=== PATIENT | male | born 1990 | race American Indian/Alaskan Native ===

== ENCOUNTER 2025-03-09 14:37 | Emergency (ER) | payer OTHER, SELFPAY ==
[2025-03-09] VITALS (10 sets, daily range): BP systolic 140–152; BP diastolic 70–80; PULSE 75–101; RESP 16–21; TEMP 36.2–36.9; O2SAT 93–98; BMI 37.3
--- NOTE | 2025-03-09 14:52 | ED.BACK ---
HPI - Back Pain/Injury <Faye Juarez PA-C - Last Filed: 03/09/25 18:45> General Chief Complaint: Back Pain/Injury Stated Complaint: Work Injury t-6, Back Pain Time Seen by Provider: 03/09/25 14:52 Source: patient History of Present Illness HPI Narrative: 34-year-old male presents today with low back pain. He was initially seen in the walk-in clinic but redirected to the emergency department due to his 06/15 pain. 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 He finished his shift ?muscle in through the following day he felt a little bit better and returned to work but does note spasms or nerve pinches that strike like electric shocks. He states the left side is worse than the right and it radiates to the buttock and mid thigh. He reports no weakness, no issues with bowel or bladder no issues starting or stopping his stream but what brought him in today is now he is experiencing left testicular pain and pain with defecation. He reports no stool retention or constipation and no incontinence of stool or urine. He has been taking ibuprofen 400 mg [id number] every 4 hours, no ice he did try heat with no help. He can not get comfortable, he reports worsening pain with any movement such as standing, sitting, bending forward, walking. 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 He denies any scrotal swelling. Has no surgical history, no prior back injuries that he is aware of. He resides in [place]. All other systems are reviewed and are negative. Related Data Previous Rx's Medication Instructions Recorded cyclobenzaprine 10 mg tablet 10 mg PO TID #10 tabs 03/09/25 hydrocodone 5 mg-acetaminophen 325 1 tab PO Q6H PRN pain #10 tabs 03/09/25 mg tablet prednisone 20 mg tablet 40 mg (2 x 20 mg) PO DAILY #8 tabs 03/09/25 Allergies Allergy/AdvReac Type Severity Reaction Status Date / Time No Known Drug Allergies Allergy Verified 03/09/25 14:42 Review of Systems <Faye Juarez PA-C - Last Filed: 03/09/25 18:45> Review of Systems Narrative: All other systems reviewed and are negative. Patient History <Faye Juarez PA-C - Last Filed: 03/09/25 18:45> Social History Smoking Status: Current every day smoker Smoking Status: Current every day smoker tobacco type: cigarettes Exam <Faye Juarez PA-C - Last Filed: 03/09/25 18:45> Initial Vital Signs Initial Vital Signs: Vital Signs Temperature 97.1 F L 03/09/25 14:42 Pulse Rate 101 H 03/09/25 14:42 Respiratory Rate 18 03/09/25 14:42 Blood Pressure 152/80 H 03/09/25 14:42 Pulse Oximetry 97 03/09/25 14:42 Oxygen Delivery Method Room Air 03/09/25 14:42 Vital signs reviewed and are normal. Const General: cooperative, well developed, well groomed and No acute distress Other: Brought in by wheelchair, pleasantly conversing. No obvious distress. He is here with his brother and father. [facility] Head: normal to inspection and normocephalic Eyes General: Yes appearance normal, both eyes and all related structures Neck Neck: normal visual inspection, full ROM, trachea midline, supple and No lymphadenopathy Resp Auscultation: clear to auscultation bilaterally, no rales, no rhonchi and no wheezes Cardio Rate: regular rate Rhythm: regular rhythm GI Inspection: normal to inspection, no edema, non-distended and no visible herniation Percussion: normal to percussion Auscultation: normal bowel sounds Rectal Exam: visual inspection normal, normal sphincter tone, prostate normal and tenderness General: bladder normal to inspection, bladder normal to palpation and No CVA tenderness External: normal external exam, no hernia and no inguinal lymphadenopathy Penis: normal penis and no swelling Meatus: meatus normal Scrotum: scrotum normal, no ecchymosis, not edematous, not erythematous, no masses and no scrotal swelling Testes: normal, testicular lie normal and epididymides normal Other: Tenderness at the external inguinal ring bilaterally but no appreciable hernia. Back/Spine/Pelvis Back: back tenderness, No CVA tenderness, No ecchymosis, No erythema, No mass, No sacral edema and No warmth Cervical Spine: normal cervical lordosis and cervical ROM normal Thoracic/Lumbar Spine: No surgical scar(s) present, pain with thoraco-lumbar ROM, paraspinal tenderness, thoraco-lumbar spasm, lumbar spinal tenderness and straight leg raise positive (Pain is reproduced bilaterally with leg his raised 10-15 degrees below full) Sacroiliac Joints: nontender Sacrum: no ecchymosis, no erythema, no swelling and no tenderness Coccyx: no tenderness Other: Unable to perform full extension in the upright position, lateral bending and rotation cause him pain. He has pain maximal intensity in the interspaces of L4-L5 S1. Paraspinous tissues or also tender left greater than right, no sciatic notch tenderness elicited. No buttock tenderness, gluteal tone is normal. Hamstrings are slightly tight left greater than right, no ITB band tenderness. Unable to perform hip ROM in the standing position due to his low back pain he has full weightbear, no foot drop. Neuro DTR's: Rt Patellar: 2+, Lt Patellar: 2+, Rt Ankle: 2+ and Lt Ankle: 2+ Plantar Reflexes: Downgoing: bilateral Other: Sensory is grossly intact, distal neurovascular is intact, normal DP and PT pulses. No edema. Lower extremities are symmetric. Strength is intact with lower extremities abduction, adduction, knee flexion, extension, strength intact against resistance to bilateral feet, lower extremities. Extrem Other: No focal deficits of his lower or upper extremities. <Denise Erickson DO - Last Filed: 03/10/25 18:13> Initial Vital Signs Initial Vital Signs: Vital Signs Temperature 97.1 F L 03/09/25 14:42 Pulse Rate 101 H 03/09/25 14:42 Respiratory Rate 18 03/09/25 14:42 Blood Pressure 152/80 H 03/09/25 14:42 Pulse Oximetry 97 03/09/25 14:42 Oxygen Delivery Method Room Air 03/09/25 14:42 Course <Faye Juarez PA-C - Last Filed: 03/09/25 18:45> Orders Ordered: Discontinued Medications Hydrocodone Bitart/Acetaminophen (Hydrocodone/Acet 5/325 Prepack) 1 bottle MISC DIRECTED ONE Stop: 03/09/25 17:57 Last Admin: 03/09/25 18:29 Dose: 1 bottle Documented By: SHAGGY Cyclobenzaprine HCl (Cyclobenzaprine 10 Mg Prepack) 1 bottle MISC DIRECTED ONE Stop: 03/09/25 17:57 Last Admin: 03/09/25 18:29 Dose: 1 bottle Documented By: SHAGGY Diazepam (Diazepam 10 Mg/2 Ml Syringe) 2 mg IV NOW ONE Stop: 03/09/25 17:13 Last Admin: 03/09/25 17:19 Dose: 2 mg Documented By: Hydromorphone HCl (Hydromorphone 1 Mg Inj) 1 mg IV NOW ONE Stop: 03/09/25 15:32 Last Admin: 03/09/25 15:42 Dose: 1 mg Documented By: SB Hydromorphone HCl (Hydromorphone 1 Mg Inj) 1 mg IV NOW ONE Stop: 03/09/25 16:43 Last Admin: 03/09/25 16:52 Dose: 1 mg Documented By: Ondansetron HCl (Ondansetron 4 Mg/2 Ml Inj) 4 mg IV NOW ONE Stop: 03/09/25 15:46 Last Admin: 03/09/25 15:53 Dose: 4 mg Documented By: SHAGGY Prednisone (Prednisone 20 Mg Tablet) 40 mg PO NOW ONE Stop: 03/09/25 16:24 Last Admin: 03/09/25 16:30 Dose: 40 mg Documented By: SHAGGY Reevaluation(s) Reevaluation #1: Initially some improvement with 1st dose of Dilaudid, he was able to ambulate to the toilet and provide a urine sample which was normal. Subsequent spasm ensued at the left gluteus region, sciatic notch (reexamined), no swelling, focal tenderness is noted here, additional Dilaudid was given. Patient continues to have spasms and a trial of Valium IV will be given along with plain film radiographs. He has been given to bottles of water as his specific gravity was 1.030 otherwise it was a negative urinalysis. Reevaluation #2: More improvement following the Valium, he is again in full extension upright and able to ambulate, still has occasional spasms in the left buttock. No new findings on examination or new symptoms at this point. At no time did he experience any respiratory depression. Vital signs remained normal throughout. Vital Signs Vital signs: Vital Signs - 8 hr 03/09/25 14:42 03/09/25 16:56 Temperature 97.1 F L Pulse Rate 101 H 88 Respiratory Rate 18 18 Blood Pressure 152/80 H 148/75 H Pulse Oximetry 97 97 Oxygen Delivery Method Room Air Room Air <Denise Erickson DO - Last Filed: 03/10/25 18:13> Orders Ordered: Discontinued Medications Hydrocodone Bitart/Acetaminophen (Hydrocodone/Acet 5/325 Prepack) 1 bottle MISC DIRECTED ONE Stop: 03/09/25 17:57 Last Admin: 03/09/25 18:29 Dose: 1 bottle Documented By: SB Cyclobenzaprine HCl (Cyclobenzaprine 10 Mg Prepack) 1 bottle MISC DIRECTED ONE Stop: 03/09/25 17:57 Last Admin: 03/09/25 18:29 Dose: 1 bottle Documented By: SB Diazepam (Diazepam 10 Mg/2 Ml Syringe) 2 mg IV NOW ONE Stop: 03/09/25 17:13 Last Admin: 03/09/25 17:19 Dose: 2 mg Documented By: Hydromorphone HCl (Hydromorphone 1 Mg Inj) 1 mg IV NOW ONE Stop: 03/09/25 15:32 Last Admin: 03/09/25 15:42 Dose: 1 mg Documented By: SB Hydromorphone HCl (Hydromorphone 1 Mg Inj) 1 mg IV NOW ONE Stop: 03/09/25 16:43 Last Admin: 03/09/25 16:52 Dose: 1 mg Documented By: Ondansetron HCl (Ondansetron 4 Mg/2 Ml Inj) 4 mg IV NOW ONE Stop: 03/09/25 15:46 Last Admin: 03/09/25 15:53 Dose: 4 mg Documented By: SB Prednisone (Prednisone 20 Mg Tablet) 40 mg PO NOW ONE Stop: 03/09/25 16:24 Last Admin: 03/09/25 16:30 Dose: 40 mg Documented By: SB Vital Signs Vital signs: Vital Signs - 8 hr 03/09/25 14:42 03/09/25 16:56 Temperature 97.1 F L Pulse Rate 101 H 88 Respiratory Rate 18 18 Blood Pressure 152/80 H 148/75 H Pulse Oximetry 97 97 Oxygen Delivery Method Room Air Room Air MDM - Back Pain/Injury <Faye Juarez PA-C - Last Filed: 03/09/25 18:45> Lab Data Lab results narrative: Urinalysis normal except for specific gravity 1.030. Labs: Urine Dip Bedside Urine Glucose 250 mg/dl Bedside Urine Bilirubin - Negative Bedside Urine Ketone - Negative Urine Specific [place] 1.030 Bedside Urine Occult Blood - Negative Bedside Urine pH 5.5 Bedside Urine Protein - Negative Bedside Urine Urobilinogen - Negative Bedside Urine Nitrite - Negative Bedside Urine Leukocytes - Negative Esterase Imaging Data X-ray lumbar spine: My Impression: Deferred to radiologist's interpretation below. Radiologist's Impression: PROCEDURE: XR LUMBAR SPINE 2-3V INDICATIONS: acute low back pain with radiculopathy. No fall or trauma TECHNIQUE: 3 views of the lumbar spine were acquired. COMPARISON: None. FINDINGS: Bones: 5 [id number] vertebrae are present. There is normal bony alignment. No vertebral body compression fractures. No suspicious bony lesions. Soft tissues: Overlying bowel gas pattern is normal. No suspicious soft tissue calcifications. IMPRESSION: No acute bony abnormality. Dictated by: Gregory Garcia M.D. on 03/09/2025 at 17:14 Approved by: Gregory Garcia M.D. on 03/09/2025 at 17:14 [facility] Narrative Medical decision making narrative: Patient was treated with intravenous pain management in the form of Dilaudid, he did get some mild relief, and was able to ambulate without assistance to the toilet and provide a urine sample. No focal neurologic deficits on examination, normal rectal tone and reflexes, no footdrop, he does have midline and paraspinous tissue tenderness of the lumbosacral spine however. He experienced some left-sided gluteal sciatic spasms, repeat Dilaudid was given no significant relief with this new symptom and a trial of Valium IV was given. This absolutely helps him, plain film radiographs were performed which showed no acute findings. Concern for disc bulge, herniation, rupture versus acute paraspinous or ligamentous sprain or strain of the lumbosacral region and muscle spasm. He is afebrile, no IV drug use, no signs of any infection or abscess, no clinical findings to suggest acute cauda equina, no evidence of inguinal hernia. Discussed this case with Dr. Erickson, the ER attending. He received his 1st dose of prednisone 40 mg in the ED as it was after hours, I have prescribed him for additional days in the form of a 40 mg daily burst, and addition prescriptions for cyclobenzaprine and Vicodin. He will be discharged with a prepack, we discussed constipation and narcotic usage and to make sure he hydrates or uses a stool softener as needed. Red flag warning signs were reviewed in great detail if he has any worsening signs tonight no significant pain relief, any new worrisome symptoms, do not hesitate to return to the emergency department. Discharged in improved and stable condition with his brother and father who will drive him home. <Denise Erickson, DO - Last Filed: 03/10/25 18:13> Lab Data Labs: Urine Dip Bedside Urine Glucose 250 mg/dl Bedside Urine Bilirubin - Negative Bedside Urine Ketone - Negative Urine Specific [place] 1.030 Bedside Urine Occult Blood - Negative Bedside Urine pH 5.5 Bedside Urine Protein - Negative Bedside Urine Urobilinogen - Negative Bedside Urine Nitrite - Negative Bedside Urine Leukocytes - Negative Esterase Discharge Plan Departure Patient Disposition: Home Clinical Impression: Acute back pain with radiculopathy Instructions: DI for Low Back Pain Activity Restrictions/Additional Instructions: This is an L&I claim, so when you go to [facility] to car pick up driver your prescriptions please show them your paperwork and tell them this, you should follow up with occupational medicine you may wish to call your employer to find out if they have a list of preferred providers, [facility] occupational medicine is located in [place], Dr. Frankel is available their phone number is [phone] again identify herself as an L&I back pain. There are other occupational medicine doctors in the area and you may use Google maps to find someone close to your location. The phone number listed on your paperwork can also help you by calling the injured worker hotline at [phone]. You were treated with intravenous Dilaudid which is a very strong narcotic, I have switched due to pill form also known as Vicodin this does contain acetaminophen so do not take any additional Tylenol. I have also prescribed you a steroid you had your 1st dose of prednisone today you will car pick up driver your remaining prescription and start that tomorrow. Take this with food, it can cause a little increased energy but it was a very strong anti-inflammatory. I have also prescribed a muscle relaxant called cyclobenzaprine also known as Flexeril this can be used at bedtime or up to 3 times daily, it can cause sedation so be cautious do not drive, do not use alcohol and use caution with your additional Vicodin. You were treated with Valium IV here, but I do not feel comfortable giving you additional due to the sedation risk. Narcotics can cause constipation so make sure you hydrate, consider prune juice or a stool softener if needed. These are available [id number]. I highly recommend ice to your lower back 15 minutes every several hours, use pillow support when sleeping, avoid prolonged sitting, I have given you a note taking her off work until your occupational medicine appointment. This is pending. If you have any issues overnight, you worsen, develop any new worrisome symptoms, have any issues with bowel or bladder such as retention or incontinence, any weakness in your legs, do not hesitate to return to the emergency department or call 911. I would refrain from any additional ibuprofen as it did not provide you any relief and you were taking 400 mg every 4 hours. This is too much too soon, ibuprofen is typically every 8 hours with food maximum of 800 mg. But again you did not get significant relief so I think we will try these newer medications. I have taken you off work for 3 days, pending your occupational medicine follow-up. Restrictions and light duty (if available) thereafter. Avoid bending, twisting from the waist, lifting anything greater than 10 lb, avoid prolonged sitting, standing, take mini work breaks. Do not operate heavy equipment or machinery with the prescription medications that were prescribed. No alcohol with these medications. Prescriptions: New prednisone 20 mg tablet 40 mg PO DAILY Qty: 8 0RF hydrocodone-acetaminophen 5-325 mg tablet 1 tab PO Q6H PRN (Reason: pain) Qty: 10 0RF cyclobenzaprine 10 mg tablet 10 mg PO TID Qty: 10 0RF Referrals: Miscellaneous,Doctor, MD [Primary Care Provider] - Stand Alone Forms: Patient Portal/API/Survey, Work Release Note ED Sign-out <Denise Erickson DO - Last Filed: 03/10/25 18:13> Cosign ED Attending [place] Attestation: I was available for consultation.
[2025-03-09] MEDS: HYDROMORPHONE 1 MG INJ IV ×2 (15:42→16:52)
[2025-03-09] MEDS: ONDANSETRON 4 MG/2 ML INJ IV (15:53)
[2025-03-09] MEDS: predniSONE 20 MG TABLET 40 MG PO (16:30)
--- NOTE | 2025-03-09 17:13 | DI.RAD.S_ITS ---
PROCEDURE: XR LUMBAR SPINE 2-3V INDICATIONS: acute low back pain with radiculopathy. No fall or trauma TECHNIQUE: 3 views of the lumbar spine were acquired. COMPARISON: None. FINDINGS: Bones: 5 [id number] vertebrae are present. There is normal bony alignment. No vertebral body compression fractures. No suspicious bony lesions. Soft tissues: Overlying bowel gas pattern is normal. No suspicious soft tissue calcifications. IMPRESSION: No acute bony abnormality. Dictated by: Gregory Garcia M.D. on 03/09/2025 at 17:14 Approved by: Gregory Garcia M.D. on 03/09/2025 at 17:14
[2025-03-09] MEDS: diazePAM 10 MG/2 ML SYRINGE 2 MG IV (17:19)
--- NOTE | 2025-03-09 17:26 | PC.NURSE ---
Pt able to ambulate to the bathroom for urine sample. Although, walking with slow steady gait. Pt able to stretch arms up and above and reach over to wall for support. After walking to the bathroom and back to bed, pt c/o left lower back spasms. PA made aware, medicated per JAN.
[2025-03-09] MEDS: HYDROCODONE/ACET 5/325 PREPACK 1 BOTTLE MISC (18:29)
[2025-03-09] MEDS: CYCLOBENZAPRINE 10 MG PREPACK 1 BOTTLE MISC (18:29)
== END 2025-03-09 18:35 | disposition home or self-care (01) ==
PROVIDERS: Emergency Provider Physician Assistant Medical
DX: M54.16 Radiculopathy, lumbar region (principal); M54.50 Low back pain, unspecified; N50.812 Left testicular pain; X50.0XXA Overexertion from strenuous movement or load, initial encounter; Y99.0 Civilian activity done for income or pay
CPT/HCPCS: 36415; 72100; 81003; 96374; 96375; 96376; 99284; J1171; J2405; J3360